=== PATIENT | female | born 1965 | race Two or more races ===

== ENCOUNTER 2023-10-02 08:17 | Day surgery (SDC) | payer BC, SELFPAY ==
[2023-09-30 10:46] LABS: BASOPHILS # (AUTO) 0.1 X10'3 (0-0.2); BASOPHILS % (AUTO) 0.8 % (0-1); EOSINOPHILS # (AUTO) 0.2 X10'3 (0-0.9); EOSINOPHILS % (AUTO) 3.2 % (0-6); LYMPHOCYTES # (AUTO) 1.7 X10'3 (1.1-4.8); LYMPHOCYTES % (AUTO) 23.3 % (21-51); MEAN CORPUSCULAR HEMOGLOBIN 27.3 PG (27.0-31.0); MEAN CORPUSCULAR HGB CONC 32.2 g/dL (33.0-36.5); MEAN CORPUSCULAR VOLUME 84.9 FL (78-98); MEAN PLATELET VOLUME 8.8 FL (7.4-10.4); MONOCYTES # (AUTO) 0.6 X10'3 (0-0.9); MONOCYTES % (AUTO) 7.8 % (2-12); NEUTROPHILS # (AUTO) 4.7 X10'3 (1.8-7.7); NEUTROPHILS % (AUTO) 64.9 % (42-75); PRE OP HEMATOCRIT 41.7 % (35.0-45.0); PRE OP HEMOGLOBIN 13.4 g/dL (12.0-16.0); PRE OP PLATELET COUNT 253 X10'3 (140-440); PRE OP WHITE BLOOD COUNT 7.3 10'3 (4.8-10.8); RED CELL DISTRIBUTION WIDTH 14.8 % (11.5-14.5)
[2023-09-30 10:53] LABS: ALBUMIN 3.6 G/DL (3.4-5.0); ALBUMIN/GLOBULIN RATIO 0.9 (1.1-1.5); ALKALINE PHOSPHATASE 90 IU/L (46-116); BLOOD UREA NITROGEN 26 MG/DL (7-18); BUN/CREATININE RATIO 35.6 (10.0-20.0); CALCIUM 8.6 MG/DL (8.5-10.1); CHLORIDE 104 MMOL/L (99-107); CREATININE 0.73 MG/DL (0.40-0.90); PRE OP ALT 16 U/L (30-65); PRE OP ANION GAP 6 (8-16); PRE OP AST 14 U/L (10-37); PRE OP BILIRUB, TOTAL 0.3 MG/DL (0.0-1.0); PRE OP GLUCOSE 99 MG/DL (70-104); PRE OP SODIUM 137 MMOL/L (135-145); TOTAL CARBON DIOXIDE 26.9 MMOL/L (24-32); TOTAL PROTEIN 7.7 G/DL (6.4-8.2); eGFR 82 ML/MIN
[2023-10-02] VITALS (17 sets, daily range): BP systolic 108–148; BP diastolic 42–77; PULSE 61–84; RESP 11–17; TEMP 98; O2SAT 90–98
[~2023-10-02] VITALS: Ht 165.1 cm; Wt 95.4 kg
[~2023-10-02 08:17] MED LIST: LISI20TA28 PO; cefazolin 2gm/D5W 100mL 100 ML IV ONE; famotidine 20mg tablet PO ONE; ringers solution, lacted 1,000 ML IV SCH
[2023-10-02] MEDS ORDERED: propofol inj 20 ML IV ONE (09:37)
[2023-10-02] MEDS ORDERED: fentaNYL/PF 50MCG/1 ML 2ML syringe ONE (09:37)
[2023-10-02] MEDS ORDERED: desflurane 240ml liquid inh. IH ONE (09:40)
[2023-10-02] MEDS ORDERED: LIDOcaine 2% (20mg/ml) 5ml vial ONE (09:40)
[2023-10-02] MEDS ORDERED: ePHEDrine 50MG/ML INJ. ONE (09:57)
[2023-10-02] MEDS ORDERED: ondansetron/PF 4mg/2ml inj ONE (10:00)
[2023-10-02] MEDS ORDERED: dexamethasone sod phosphate 4mg/ml inj. ONE (10:00)
[2023-10-02] MEDS ORDERED: LIDOCAINE 1%/EPI 1:100,000 inj. 10 ML multi-dose vial IJ ONE (10:10)
[2023-10-02] MEDS ORDERED: TETRACAINE 0.5% 4 ML OPHTHALMIC DROPS EACHEYE ONE (10:11)
[2023-10-02] MEDS ORDERED: ringers solution, lacted 1,000 ML IV SCH (10:15)
[2023-10-02] MEDS ORDERED: morphine 4 MG/ML inj SYRINge IV PRN (10:15)
[2023-10-02] MEDS ORDERED: hydrALAZINE 20mg/ml inj. IV PRN (10:15)
[2023-10-02] MEDS ORDERED: ondansetron/PF 4mg/2ml inj IV PRN (10:15)
[2023-10-02] MEDS: morphine 2 MG/ML inj. syringe IV PRN ×4 (11:37→13:06)
== END 2023-10-02 13:44 | disposition home or self-care (01) ==
LOC: PAS 08:17
PROVIDERS: ATTEND Specialist
DX: H02.831 Dermatochalasis of right upper eyelid (principal); H02.834 Dermatochalasis of left upper eyelid; Z41.1 Encounter for cosmetic surgery; I10 Essential (primary) hypertension; E66.9 Obesity, unspecified; Z68.35 Body mass index [BMI] 35.0-35.9, adult; Z79.899 Other long term (current) drug therapy; Z98.890 Other specified postprocedural states; Z72.89 Other problems related to lifestyle; Z87.442 Personal history of urinary calculi
CPT/HCPCS: 15821; 15823; 36415; 80053; 82948; 85025; A6402; J0690; J1100; J2270; J2405; J2704; J3010; J3490; J7030; J7120; Z7506; Z7508; Z7512; A4215; A4618; A6410; A6449; A7000